=== PATIENT | female | born 1950 | race Caucasian/White ===

== ENCOUNTER → 2017-04-15 | Outpatient (CLI) | payer MEDICARE ==
[~2017-04-15] MED LIST: ASPI-496 PO; DOXY-168 PO; FLAX1000 PO; FLUO10CA13 PO; LEVO100T5 PO; OMEG1CAP34 PO; OMEP-110 PO; POLY17PO5 PO; PRIM50TA34 PO; VITA400C43 PO; ZOLP10TA PO
== END | disposition home or self-care (01) ==
LOC: RAD 16:58
PROVIDERS: ATTEND Internal Medicine Geriatric Medicine
DX: M53.3 Sacrococcygeal disorders, not elsewhere classified (principal); M51.36 Other intervertebral disc degeneration, lumbar region; M77.31 Calcaneal spur, right foot
CPT/HCPCS: 72220

== ENCOUNTER → 2017-08-31 | Outpatient (CLI) | payer MEDICARE ==
[~2017-08-31] MED LIST changes: -DOXY-168 PO; +DOXY100T10 PO
== END | disposition home or self-care (01) ==
LOC: CFH 12:01
PROVIDERS: ATTEND Internal Medicine Geriatric Medicine
DX: N64.4 Mastodynia (principal)
CPT/HCPCS: 76642